=== PATIENT | male | born 1975 | race Caucasian/White ===

== ENCOUNTER → 2019-05-21 10:02 | Outpatient (CLI) | payer OTHER, SELFPAY ==
[2017-02-02 10:10] VITALS: BMI 28.0
[2019-05-25 13:58] LABS: Copper/Creat Ratio 22 ug/g creat (0-49)
[2019-05-25 15:06] LABS: Copper, 24Ur 44 ug/24 hr (3-35); Copper, Ur 37 ug/L (Not Estab.); Creatinine (CRT) 1.67 g/L (0.30-3.00)
== END ==
PROVIDERS: Referring Provider Internal Medicine; Visit Provider Internal Medicine
DX: E83.01 Wilson's disease (principal)
CPT/HCPCS: 82525; 82570

== ENCOUNTER → 2020-11-03 06:43 | Outpatient (CLI) | payer OTHER, SELFPAY ==
--- NOTE | 2020-11-03 06:59 | MRI_ITS ---
STUDY: MRI CERVICAL SPINE WITHOUT CONTRAST REASON FOR EXAM: Male, 45 years old. neck pain TECHNIQUE: Standardized fat and water weighted pulse sequences were obtained in the sagittal and axial planes. COMPARISON: None FINDINGS: Normal foramen magnum and brainstem-cervical cord junction. Normal craniovertebral junction. Normal anterior atlantoaxial articulation. Normal odontoid process. Normal cervical lordosis. Normal vertebral bodies and posterior osseous elements. C2-3: Normal endplates. Normal disc height, signal and morphology. Normal central canal and intervertebral neural foramina. C3-4: Normal endplates. Normal disc height, signal and morphology. Normal central canal and intervertebral neural foramina. C4-5: Right foraminal disc osteophyte complex and uncovertebral hypertrophy produces mild spinal stenosis but severe right neural foraminal stenosis with effacement of the right C5 nerve root. C5-6: Normal endplates. Normal disc height, signal and morphology. Normal central canal and intervertebral neural foramina. C6-7: Moderate bilobed disc osteophyte complex and bilateral uncovertebral hypertrophy produces moderate spinal stenosis with abutment the central spinal cord and moderate by lateral neural foraminal stenosis. C7-T1: Normal endplates. Normal disc height, signal and morphology. Normal central canal and intervertebral neural foramina. Normal cervical cord. Normal visualized soft tissue structures. MRI/Spine Cervical (Routine) IMPRESSION: Multilevel degenerative changes, as described above. Electronically Signed: Wei Osman MD at 14:32 EST Tel , Service support ,
== END ==
PROVIDERS: PCP Internal Medicine; Referring Provider Internal Medicine; Visit Provider Internal Medicine
DX: M54.2 Cervicalgia (principal)
CPT/HCPCS: 72141

== ENCOUNTER → 2023-05-28 | Outpatient (CLI) | payer OTHER, SELFPAY ==
--- NOTE | 2023-05-28 10:20 | RAD_ITS ---
INDICATION: pain EXAMINATION/TECHNIQUE: X-RAY - LEFT XR Knee Complete 4 Views or More 4 VIEWS COMPARISON: Prior exam of 06/13/2022. FINDINGS: SOFT TISSUES: No soft tissue swelling or gas. No radiopaque foreign body. BONES/JOINTS: No acute fracture or subluxation.. Normal alignment. Preservation of the joint space.. No sclerotic or destructive changes observed. RAD/Knee 4 or More Views IMPRESSION: Negative. Electronically Signed: Wm Washington MD at 10:34 EDT ,
== END | disposition home or self-care (01) ==
PROVIDERS: PCP Internal Medicine; Referring Provider Physician Assistant; Visit Provider Physician Assistant
DX: M25.562 Pain in left knee (principal)
CPT/HCPCS: 73564

== ENCOUNTER → 2023-06-07 | Outpatient (CLI) | payer OTHER, SELFPAY ==
--- NOTE | 2023-06-07 10:15 | MRI_ITS ---
STUDY: MRI LEFT KNEE REASON FOR EXAM: Male, 48 years old. Knee pain TECHNIQUE: Standardized fat and water weighted pulse sequences were obtained in all 3 orthogonal planes. COMPARISON: None. FINDINGS: Complex tear and maceration of the posterior body of the medial meniscus. There is diffuse, less than 50% thickness articular cartilage loss of the medial femorotibial compartment. Normal medial femoral condyle and tibial plateau. Mild medial capsulitis. Normal medial collateral ligamentous complex (MCL). Normal distal semimembranosus, gracilis and semitendinosus tendons. Normal lateral meniscus. Normal hyaline cartilage of the lateral femorotibial compartment. Normal lateral femoral condyle and tibial plateau. Normal proximal tibiofibular articulation. Normal lateral collateral (fibular) ligament. Normal popliteus tendon. Normal biceps femoris tendon. Normal anterior cruciate ligament (ACL). Normal posterior cruciate ligament (PCL). Shallow trochlear groove with lateral subluxation of patella and edema superolateral Hoffa''s fat pad consistent with patellofemoral maltracking. Grade IV chondromalacia exposure of the median ridge of the patella with edema of the cartilage of the medial facet. Normal medial and lateral patellar retinaculum. Normal quadriceps tendon. Normal patellar tendon. Normal Hoffa''s fat pad. There is a small volume joint effusion. The soft tissues are unremarkable. The otherwise visualized osseous structures are unremarkable. MRI/Lower Ext Joint Only (Routine) IMPRESSION: 1. 1 cm complex tear and maceration of the posterior body of the medial meniscus with mild chondromalacia, no subchondral edema, and mild capsulitis. 2. Patellofemoral maltracking with grade IV chondromalacia fissure the median ridge of the patella with edema of the cartilage of the medial facet of the patella. 3. Small joint effusion. Electronically Signed: Wei Osman MD at 21:46 EDT ,
== END | disposition home or self-care (01) ==
PROVIDERS: PCP Internal Medicine
DX: M25.562 Pain in left knee (principal)
CPT/HCPCS: 73721

== ENCOUNTER 2023-06-24 08:46 | Day surgery (SDC) | payer OTHER, SELFPAY ==
[2023-06-24 09:03] VITALS: BP 122/69; PULSE 60; RESP 16; TEMP 36.4; O2SAT 95; BMI 29.0
[2023-06-24] MEDS: Lactated Ringers 1,000 ML 15 ML IV (09:21)
--- NOTE | 2023-06-24 10:05 | HP.PCM_ITS ---
History and Physical Date of Admission: 06/24/23 [facility] [place] [address] OFFICE VISIT Date of Service: 06/11/23 MR#: [id number] Acct: [id number] Name: XAVIER GODOY Rep #: [id number] : 1975 Provider: Dr. Martin Cali DO Age/Sex: 48/M [place] [facility] [place] Status: Signed Intake Vital Signs 05/29/2311:11 Height 5 ft 9 in Intake Visit Reasons: LEFT KNEE Accompanied by: Self Is patient in pain?: Yes Allergies Penicillins Adverse Reaction (Verified 06/11/23 09:13) Unknown Medications fluticasone propionate 50 mcg/actuation nasal spray,suspension (Flonase Allergy Relief) 9.9 ml NS DAILY 04/03/15 [History Confirmed 06/11/23] sertraline 50 mg tablet 50 mg PO DAILY 02/02/17 [History Confirmed 06/11/23] PFSH Medical History Factor 5 Leiden mutation, heterozygous History of broken nose Internal derangement of left knee Strain of left knee Ant disease Surgical History H/O toe surgery Hx of cholecystectomy Hx of shoulder surgery Family History Mother Diabetes Factor 5 Leiden mutation, heterozygous Social History Smoking Status: Former smoker alcohol intake: never HPI LEFT KNEE Details: Parts of this documentation were recorded by a scribe, this documentation accurately reflects the service provided and the decisions made by me, Dr. Martin Cali, 06/11/23 [id number]. XAVIER GODOY is a 48 year old M here today for left knee MRI review and was referred by Janine. States that for the last couple of year it has been getting agitated especially when he would go up and down ladders which he stopped on the medial side of his knee. has has been treated sucessfully in the past with steroid injections. He does notices stairs make the pain worse. 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 He was then on crutches for the next couple of days. He does use a knee sleeve. He also had a knee injection last year which did help for awhile. He has been taking Advil for the pain and icing the pain. He does have pain when he walks as well. Ortho Exam General General: Yes no acute distress Neurologic: Yes oriented x3 Psychologic: Yes reasonable and appropriate Right Knee Patella Translation: 1 Left Knee Skin/Wound: No ecchymosis, No erythema and No swelling Homans Sign: No Knee ROM: Yes ROM-Extension -20 to 0 and Yes ROM-Flexion 0-140 (125) Examination: Yes med jt line tenderness, No Lat jt line tenderness, No Crepitus, Yes Rossana's Test and No TTP Pes Anserine Stability: NML: Anterior Drawer, NML: Posterior Drawer, NML: Valgus 30 and NML: Varus 30 Apprehension with Lateral Translation: No Patella Translation: 1 Patella Grind: No Head: Normocephalic Atraumatic Chest: symmetrical rise, non-labored breathing, no audible wheeze Abdomen: no guarding, non-rigid Supplemental Info 06/07/2023 MRI left knee: Complex tear and maceration of the posterior body of the medial meniscus. Diffuse less than 50% cartilage loss of the medial compartment. Shallow trochlear groove with lateral subluxation of the patella edema in the superior lateral Hoffa's fat pad consistent with patellofemoral maltracking. Grade IV chondromalacia exposure of the median ridge of the patella with edema. Small joint effusion. 05/28/2023 x-ray left knee: There is no acute findings there is preserved joint spaces. Coding Level of Care Code Off vis,est,level 3 Diagnoses Factor 5 Leiden mutation, heterozygous D68.51 Ant disease E83.01 Acute medial meniscus tear of left knee, subsequent encounter S83.242D Encounter type: subsequent encounter Primary osteoarthritis of left knee M17.12 Osteoarthritis type: primary Assessment and Plan Assessment and Plan (1) Factor 5 Leiden mutation, heterozygous: Status: Acute (2) Ant disease: Status: Acute (3) Acute medial meniscus tear of left knee: Status: Acute Qualifiers: Encounter type: subsequent encounter Qualified Code(s): S83.242D - Other tear of medial meniscus, current injury, left knee, subsequent encounter (4) Left knee DJD: Status: Acute Qualifiers: Osteoarthritis type: primary Qualified Code(s): M17.12 - Unilateral primary osteoarthritis, left knee Plan MRI was review and does have a complex tear in the medial meniscus as well as less than 50% cartilage wear of the medial compartment and high-grade cartilage wear of the patella symptomatically he does not have any patellofemoral symptoms at this time. The knee arthritis component is not severe enough for a TKA. The meniscus tear does cause the pain and instability. Treatment option are do nothing or knee arthroscopy partial medial meniscectomy. Reviewed the pre- operative plans with the patient, and postoperative expectations as he does have arthritis of the knee as well. Risks and benefits of the procedure were fully explained, including but not limited to infection, neurovascular injury, continued pain, arthritis, stiffness, need for further surgery, re-injury, DVT, PE, general risks of anesthesia, and loss of limb or life. The patient understands all the risks and does wish to proceed , written consent obtained. Patient does have factor V Leiden and Ant's disease therefore we will need to get medical clearance, and anticoagulation recommendations from his PCP postoperatively He should not use any NSAIDs 7 days preoperatively Tentative surgery date June 24, 2023 Follow up in 2 weeks post-op or sooner if pain, swelling, numbness or associated symptoms, or concerns develop. All questions answered. Patient in agreement of plan. 06/11/23 0959 <Electronically signed by Martin Cali DO> Date Martin Cali DO Cosigner Signature: Date (if applicable) I have examined the patient and the H&P has been reviewed. There are no clinical changes since date of exam.
[2023-06-24] MEDS: Cefazolin 2 GM in 0.9% Normal Saline (100mL Bag) 100 ML IV (10:30)
[2023-06-24] MEDS: Lidocaine 1% /Epi 1:100 (20ml) 20 ML Vial (10:51)
[2023-06-24] MEDS: Epinephrine (1 mg/ml) 1 MG/ML VIAL ×2 (11:00)
[2023-06-24] MEDS: Bupivacaine Mpf 0.5% 30 ML VIAL (11:11)
[2023-06-24] MEDS: MethylPREDNISolone Acetate 40 MG/ML Vial IM (11:11)
--- NOTE | 2023-06-24 11:18 | OP.PCM_ITS ---
Operative Report Date of Procedure: 06/24/23 Preop diagnosis: Left knee complex tear medial meniscus Postoperative diagnosis: Same plus grade 3 fissure medial tibial plateau Procedure: Left knee arthroscopic partial medial meniscectomy Anesthesia: General Estimated blood loss: 5 mL Tourniquet time: 25 minutes 300 mmHg Complications: none Indication for procedure: 48-year-old male who has had ongoing mechanical knee pain due to have MRI evidence of complex medial meniscus tear . The patient did wish to proceed with an elective arthroscopic surgery to attempt to alleviate the symptoms. Risk benefits and alternatives of the procedure were reviewed including risk of bleeding infection nerve artery tissue damage need for further surgery continued pain and expected postoperative course. Procedure: The patient was met in the preoperative holding area. The operative extremity was identified by both patient and physician and family and marked. Patient was brought back to the operating room on a wheeled cart and transferred to the operating table in the supine position. Anesthesia was started. A well- padded tourniquet was placed on the operative extremity. A lower extremity leg norman was secured to the operative extremity. The contralateral extremity was well-padded and the end of the bed was flexed to 90 degrees. The patient was prepped and draped in the usual sterile fashion. A timeout was called to ensure the proper patient, procedure, and extremity were being contemplated. 0.5% Marcaine with epinephrine was injected into the planned incisional areas under the skin only. An Esmarch was used to exsanguinate the extremity and the tourniquet was inflated. An 11 blade scalpel was used to make a stab incision in the anterior lateral portal. The arthroscope was inserted into the intercondylar notch and inflow and outflow tubes were attached. Arthroscopic visualization began. The medial compartment was entered. An 18-gauge spinal needle was used to establish the placement for anterior medial portal. An 11 blade scalpel was used to make a stab incision. Blunt probe was inserted followed by a meniscal probe. Immediately there was noted to be complex tear of the body of the medial meniscus with use of arthroscopic biting instruments shaver and ArthroCare wand partial medial meniscectomy was performed there was noted to be grade 3 fissure of the medial tibial plateau in the anterior lateral aspect extending into the intercondylar notch the ACL was found to be intact. The lateral compartment was entered was free of meniscal or cartilage pathology The arthroscope was switched to the medial portal to complete the procedure. The medial and lateral gutters were inspected and were free of loose bodies. The patellofemoral joint was inspected and was free of cartilage pathology. There was good patellar tracking. The knee was thoroughly irrigated and drained. An intra-articular injection with 5 cc 0.5% Marcaine plain and 40 mg of Depo-Medrol was injected intra-articularly. The arthroscope was removed the portals were closed with 3-0 nylon arthroscopic stitches. Followed by Xeroform 4 x 4's ABDs web roll and an Nolan wrap. The tourniquet was let down and the drapes were removed. All counts were correct. The patient was brought back to the PACU in stable condition.
--- NOTE | 2023-06-24 11:21 | DCINST_ITS ---
Discharge Instructions Diet Discharge Diet: No restrictions Activity Weight Bearing Status: Weight bearing as tolerated Dressing / Incision Call your doctor if you observe: Shortness of breath and Chest pain Additional Dressing/Incision Instructions:: Ice and elevate next 72 hours .keep dressing on clean and dry for 48 hours then may remove begin showering daily but do not submerge in tub or pool. After shower may apply Band-Aids . Encourage knee range of motion weightbearing as tolerated, use crutches until confident in knee then may discontinue. No strenuous activity. When not ambulating keep iced and elevated next 72 hours. Do not mix pain medication with recreational drugs or alcohol only take as prescribed can be addictive and abusive, call with any questions or concerns. take Eliquis 5 mg twice a day for 8 days as prescribed by primary care physician (samples given) for DVT prophylaxis considering factor V Leiden mutation. Do not take any NSAIDs such as ibuprofen or Aleve while on blood thinner, but may start to use them the day after completion of Eliquis . However Tylenol 1000 mg 4 times a day as needed is fine immediately postop. Follow Up Care Please Follow Up With: Martin Cali DO When: 2 weeks Test Results: Test results from this visit will be discussed in further detail at your follow- up appointment, if applicable. Discharge Plan Admission Primary Reason for Your Visit: Left knee arthroscopy Attending Provider: Martin Cali Primary Care Provider: Veronika Morales Discharge Orders/Prescriptions Prescriptions: New acetaminophen [acetaminophen] 500 mg tablet 1,000 mg PO Q6H PRN Qty: 50 0RF oxycodone 5 mg tablet 5 - 10 mg PO Q4H PRN (Reason: pain) 5 Days Qty: 25 0RF Continued fluticasone propionate [Flonase Allergy Relief] 9.9 ML spray,suspension 9.9 ml NS DAILY sertraline 100 mg tablet 100 mg PO DAILY zinc 50 mg capsule 50 mg PO TID Rx Instructions: administer on empty stomach, at least 1 hour before or after meal(s) Referrals / Follow Up: Veronika Morales MD [Primary Care Provider] - Disposition Disposition (needs filled in before D/C Order can be placed): Home, Self Care
[2023-06-24 11:30] VITALS: BP 119/72; BP 122/69; PULSE 65; RESP 16; TEMP 36.6; O2SAT 93
[2023-06-24 11:45] VITALS: BP 122/69; BP 124/78; PULSE 64; RESP 16; O2SAT 96
[2023-06-24 11:50] VITALS: BP 122/69; BP 124/78; PULSE 61; RESP 16; TEMP 36.6; O2SAT 95
[2023-06-24 12:56] VITALS: BP 120/66; BP 122/69; PULSE 59; RESP 18; TEMP 36.1; O2SAT 95
== END 2023-06-24 13:04 | disposition home or self-care (01) ==
LOC: SDC 08:50 → AC 08:50
PROVIDERS: PCP Internal Medicine; Referring Provider Orthopaedic Surgery; Visit Provider Orthopaedic Surgery
PROC: (CPT 29870; principal; 2023-06-24 10:10)
DX: S83.242A Other tear of medial meniscus, current injury, left knee, initial encounter (principal); D68.51 Activated protein C resistance; M17.12 Unilateral primary osteoarthritis, left knee; E83.01 Wilson's disease; F43.10 Post-traumatic stress disorder, unspecified; Z87.891 Personal history of nicotine dependence; Z79.899 Other long term (current) drug therapy; X58.XXXA Exposure to other specified factors, initial encounter; Z86.711 Personal history of pulmonary embolism
CPT/HCPCS: 29881; 01400; J7120; J2405

== ENCOUNTER → 2025-08-01 | Outpatient (CLI) | payer OTHER, SELFPAY ==
[2025-08-01 09:27] LABS: Red Blood Cells-Urine 0 SEEN /hpf (0-5); Squamous Epithelial Cells - UA 0 SEEN /hpf (0-5)
[2025-08-01 10:36] LABS: Color, Urine Yellow (Yellow); Glucose, Dipstick Normal (Normal); Ketone-Dipstick Negative (Negative); Leukocyte Esterase-Dipstick Negative /ul (Negative); Nitrite-Dipstick Negative (Negative); Occult Blood-Urine Negative /ul (Negative); Protein-Dipstick 30 mg/dl (Negative); Specific Gravity, Urine 1.025 (1.002-1.030); Urine Bilirubin Dipstick Negative (Negative)
[2025-08-01 10:39] LABS: Hematocrit 46.8 % (40-54); Hemoglobin 15.5 g/dL (13.0-16.5); Immature Granulocytes Count 0.010 X10^3/uL (0.0-0.0); Mean Corp Hgb Conc 33.1 g/dL (32-36); Mean Corpuscular Volume 85.2 fL (80-94); Mean Platelet Vol. 11.1 fl (6.2-12.0); NRBC Flagged by Analyzer 0 % (0-5); Platelet Count 239 K/mm3 (150-450); RBC Distribution Width CV 14.3 % (11.6-14.6); RBC Distribution Width SD 44.3 fl (35.1-43.9); Red Blood Count 5.49 M/mm3 (4.6-6.2); White Blood Count 6.1 K/mm3 (4.4-11.0)
[2025-08-01 10:53] LABS: AST(SGOT) 33 U/L (<=37); Alanine Aminotransfer ALT/SGPT 68 U/L (<=46); Albumin, Serum 4.9 g/dL (3.5-5.0); Alkaline Phosphatase 72 U/L (40-129); Anion Gap 13 (5-15); BUN 13 mg/dL (4-19); BUN/Creat Ratio 15.1 RATIO (10-20); Calcium,Total 9.5 mg/dL (7.6-11.0); Carbon Dioxide 25.4 mmol/L (21.0-32.0); Chloride 107 mmol/L (98-108); Globulin 2.0 g/dL (2.2-4.2); Glucose 106 mg/dL (70-99); Potassium 4.2 mmol/L (3.3-5.1)
[2025-08-01 11:00] LABS: Mucous, Urine 1+ /hpf (<or=2+)
[2025-08-01 11:44] LABS: Creatinine, Urine (random) 274.00 mg/dL (39.00-259.00); Microalbumin,Random Urine 22.7 mg/L (<20 mg/L)
[2025-08-03 23:08] LABS: Copper, Serum or Plasma 19 ug/dL (69-132)
== END | disposition home or self-care (01) ==
PROVIDERS: PCP Internal Medicine; Visit Provider Internal Medicine
DX: E78.5 Hyperlipidemia, unspecified (principal); E83.01 Wilson's disease
CPT/HCPCS: 80053; 81001; 82043; 82525; 82570; 85025; 87086

== ENCOUNTER → 2025-09-19 | Outpatient (CLI) | payer OTHER, SELFPAY ==
--- NOTE | 2025-09-19 08:05 | US_ITS ---
PROCEDURE: ABD LIMITED W/ ELASTOGRAPHY, 09/19/2025 REASON FOR EXAM: FATTY LIVER COMPARISON: None TECHNIQUE: Grayscale and color Doppler imaging of the right upper quadrant was performed. Elastography was performed for non-invasive assessment of liver tissue stiffness utilizing a 27 Perry S-shear wave imaging unit. FINDINGS: Liver: Echogenic. 18.3 cm in length. Gallbladder: Cholecystectomy. Biliary tree: Unremarkable. CBD measures 3 mm. Pancreas: Largely obscured by shadowing bowel gas. Right kidney: Unremarkable. 11.8 cm in length. Other: No visualized free fluid. Hepatic elastography: Number of measurements: 6. US probe: CA1-7A. EQI median: 10.3 kPa EQI median velocity: 1.85 m/s IQR/Med: 5.4% (kPa) and 2.8% (m/s). If the IQR/Med is IQR/median >30% (for kPa) or >15% in m/s, the variance in the measurements is a large and the accuracy of the measurement may be in question. US/ABD Limited w/ Elastography IMPRESSION: 1. Apperance of the liver which is most frequently suggestive of hepatocellular disease such as steatosis. Correlate for clinical and laboratory evidence of chronic liver disease.. 2. Liver stiffness is 10.3 kPa. Per the below 2020 SRU criteria, this is sugges tive of compensated advanced chronic liver disease but requires further testing for confirmation. 3. Additional description as above. Assessment is per the Update to the SRU Liver Elastography Consensus Statement (2020) Note that the above assessment of liver fibrosis is vendor-neutral and intended for use in fibrosis related to viral etiologies and non-alcoholic fatty-liver disease (NAFLD); in causes other than viral hepat itis and NAFLD, the cutoff values are currently not well established. In some patients with NAFLD, the cutoff values for cACLD may be lower (7-9 kPa). Note also that in the setting of elevated LFTs, nonfasting or vascular congestion, the stage of lifer fibrosis may be overestimated. Previous SRU reference values: <1.37 m/s (5.7kPa): No to mild fibrosis 1.37 m/s - 2.2 m/s: Moderate to severe fibrosis >2.2 m/s (15kPa): Significant fibrosis / cirrhosis Reading Location: [id number]
== END | disposition home or self-care (01) ==
LOC: US 08:00
PROVIDERS: PCP Internal Medicine; Referring Provider Internal Medicine; Visit Provider Internal Medicine
DX: K76.0 Fatty (change of) liver, not elsewhere classified (principal)
CPT/HCPCS: 76705; 76981